=== PATIENT | male | born 2000 | race Caucasian/White ===

== ENCOUNTER 2025-06-15 19:56 | Emergency (ER) | payer MEDICAID, OTHER ==
[~2025-06-15] VITALS: Ht 180.3 cm; Wt 122.4 kg
[2025-06-15 21:52] LABS: PROTEIN, URINE MANUAL REFLEX NEGATIVE (NEGATIVE); SP GRAVITY,URINE MANUAL REFLEX 1.015 (1.002-1.035)
[2025-06-15 21:53] LABS: KETONE, URINE MANUAL REFLEX NEGATIVE (NEGATIVE); NITRITE, URINE MANUAL RFX NEGATIVE (NEGATIVE); UROBILINOGEN, UA MANUAL REFLEX NORMAL (NORMAL)
[2025-06-15 21:57] LABS: Trichomonas vaginalis (AMP) NOT DETECTED (NEGATIVE)
[2025-06-15 22:21] LABS: GC DNA AMPLIFICATION NEGATIVE (NEGATIVE)
[2025-06-15] MEDS ORDERED: LEVO1TAB39 PO (23:25)
[2025-06-16] VITALS: BP 151/72; TEMP 99.6; O2SAT 98
== END 2025-06-16 00:05 | disposition home or self-care (01) ==
LOC: M ED 19:56
DX: N45.2 Orchitis (principal); Z79.899 Other long term (current) drug therapy